=== PATIENT | male | born 1955 | race Caucasian/White ===

== ENCOUNTER 2018-06-13 13:44 | Inpatient (IN) | payer BC ==
[2018-06-13 15:12] LABS: #Eosinphils 0.1 thou/uL (0.0-0.7); #Lymphocytes 0.4 thou/uL (1.20-3.40); #Monocytes 0.7 thou/uL (0.11-0.59); #Neutrophils 3.4 thou/uL (1.40-6.50); %Basophils 0.3 % (0.0-1.0); %Eosinophils 2.9 % (0.0-10.0); %Lymphocytes 9.3 % (21.0-51.0); %Monocytes 14.6 % (0.0-10.0); Hemoglobin 11.7 g/dL (14.0-18.0); Mean Corpuscular HGB CONC 32.9 g/dL (32.0-36.0); Mean Corpuscular Hemoglobin 30.1 pg (27.0-31.0); Mean Corpuscular Volume 91.5 fL (78.0-98.0); Mean Platelet Volume 6.1 fL (7.4-10.4); Platelet Count 253 thou/uL (130-400); RBC Distribution Width 12.1 % (11.5-14.5); Red Blood Cell (RBC) Count 3.88 mill/uL (4.70-6.10); White Blood Cell (WBC) Count 4.6 thou/uL (4.8-10.8)
[2018-06-13 15:29] LABS: ALT (SGPT) 54 U/L (8-55); AST (SGOT) 57 U/L (5-34); Albumin 3.1 g/dL (3.4-4.8); Alkaline Phosphatase 213 U/L (40-150); Anion Gap 11 mmol/L (10-20); BUN (Urea Nitrogen) 37 mg/dL (8.4-25.7); Bilirubin, Total 0.7 mg/dL (0.2-1.2); Calc. Creatinine Clearance 0 mL/min (70-130); Calcium 9.1 mg/dL (7.8-10.44); Carbon Dioxide 27 mmol/L (23-31); Chloride 91 mmol/L (98-107); Estimated GFR-MDRD 34; Globulin 2.9 g/dL (2.4-3.5); Glucose 181 mg/dL (80-115); Potassium 4.6 mmol/L (3.5-5.1); Sodium 124 mmol/L (136-145)
[2018-06-13 16:34] VITALS: BMI 45.9
[2018-06-13] MEDS ORDERED: Dextrose 5% in Water 1,000 ML IV PRN (16:55)
[2018-06-13] MEDS ORDERED: Ondansetron HCl/PF 4 MG/2 ML Vial IVP PRN (16:55)
[2018-06-13] MEDS ORDERED: Ondansetron ODT 4 MG TAB PO PRN (16:55)
[2018-06-13] MEDS ORDERED: Dextrose 50% Abboject 50 ML SYRINGE SLOW IVP PRN (16:55)
[2018-06-13] MEDS ORDERED: Acetaminophen 325 MG TAB PO PRN (16:55)
[2018-06-13] MEDS ORDERED: HumaLOG 300 UNITS/3 ML VIAL SC PRN ×2 (16:55)
[2018-06-13] MEDS ORDERED: hydrALAZINE 20 MG/ML VIAL SLOW IVP PRN (16:55)
[2018-06-13] MEDS: Sodium Chloride 0.9% 1,000 ML IV SCH (17:53)
--- NOTE | 2018-06-13 18:25 | NM ---
NUCLEAR MEDICINE VENTILATION PERFUSION SCAN: (V/Q SCAN) 06/13/18 at 5:12 p.m. HISTORY: 62-year-old male with dyspnea, cough, and elevated D-dimer. TECHNIQUE: Xenon-133 gas dose: 6.6 millicuries [id number] dose: 6.4 millicuries The patient inhaled Xenon-133 gas, and dynamic ventilation scintigraphy was performed. [id number] was injected IV, and multiple perfusion scintigraphic views were obtained. FINDINGS: There is a right lower lobe moderate sized perfusion defect, without a corresponding matching defect on the ventilation study in that area. This single moderate sized mismatch constitutes an intermediat e probability for pulmonary thromboembolism. There is no corresponding opacification of the right bas e seen on the current frontal chest radiograph, but a lateral view is not available. Instead, there i s opacification of the left lower lobe on the chest radiograph, consistent with pneumonia there. IMPRESSION: Intermediate probability for pulmonary thromboembolism. KAREN Simms POS: ANNITA
[2018-06-13 18:37] LABS: Osmolality, Urine 261 mOsm/kg (300-900); Sodium, Urine 34 mmol/L (Not Available)
--- NOTE | 2018-06-13 19:45 | HP ---
PRIMARY CARE PHYSICIAN: Dr. Martinez. CHIEF COMPLAINT: Shortness of breath and cough. HISTORY OF PRESENT ILLNESS: Mr. Chacon is a pleasant 62-year-old gentleman who has a history of hyp ertension, diabetes mellitus and chronic kidney disease stage 3. He was in his usual state of health until approximately a week to 10 days ago. He began having flu-like symptoms with fever and chills as well as cough and trouble sleeping. He also was having some sinus pressure. He went to his [facility] care provider and saw the nurse practitioner there and she prescribed Omnicef twice a day. He too k the antibiotics, but still did not see any improvement. He was still having a high fever as well a s a cough and he came back to the primary care. At this time, he saw Dr. Martinez. He prescribed L evaquin and gave him a shot of Rocephin. This was on Sunday, he was still feeling a little bit weak , but then started to seem like he was improving, he was still having a significant cough, so his wif e gave him some Tussionex and then she says she also gave him some Benadryl. She was checking his pu lse oximetry and noticed that his oxygen levels were in the mid 80s. This got her concerned. She wa ited a little bit thinking it might be the medication effects, but it persisted in the mid 80s and fo r this reason, she called her primary care physician. He said, well if it is not getting better to g o to the ER. She came to the ER in [place] and they evaluated the patient. X-ray was done which d emonstrated a left lower lobe pneumonia. He also had an elevated D-dimer and for this reason, he was being transferred to our facility to make sure he did not have a superimposed pulmonary embolism. O ther than feeling weak and poor appetite and extremely short of breath, primarily on exertion which i s minimal movement, the other review of systems is negative. REVIEW OF SYSTEMS: All systems are reviewed and negative except for that mentioned in the history of present illness. PAST MEDICAL HISTORY: Significant for hypertension, diabetes mellitus type 2, and chronic kidney dis ease stage 3. PAST SURGICAL HISTORY: She has had back surgery. ALLERGIES: AUGMENTIN which causes severe diarrhea. SOCIAL HISTORY: He is , has two children. He is a F[employer]. Nonsmoker and he occasionally drinks. FAMILY HISTORY: No history of any inheritable diseases. MEDICATIONS: Include albuterol, alprazolam, aspirin 81 mg daily, carvedilol 3.125 mg twice a day, ci talopram 10 mg daily, glimepiride 4 mg twice a day, hydrochlorothiazide, Levaquin, metformin 1000 mg twice daily, Actos 45 mg daily, simvastatin 40 mg daily, and fish oil. PHYSICAL EXAMINATION: GENERAL: He is alert and oriented. He appears to be in no acute distress. He is well-developed but morbidly obese gentleman. VITAL SIGNS: Blood pressure was 149/63, heart rate 61, respiratory rate of 18, temperature is 98.7. HEENT: His pupils are equal, round, and reactive. Extraocular muscles are intact. Sclerae are anic teric. Throat: There is no erythema, no exudates. He has got poor dentition. NECK: There is no jugular venous distention, no bruits. LUNGS: He has got rales through much of the left lobe and lung field. There was no wheezing, no rho nchi. He had some decreased breath sounds at the left base. CARDIOVASCULAR: He has a normal S1 and S2. There was no S3 or S4. No murmurs, clicks or rubs. ABDOMEN: Obese, it is soft, it is nontender, nondistended. Positive for bowel sounds. There is no rebound, no guarding and no organomegaly. EXTREMITIES: There is no calf tenderness or redness, no warmth, no joint effusions. NEUROLOGIC: His muscle strength is 5/5 in both his upper and lower extremities. Cranial nerves II-X II are intact. EXTREMITIES: He has got palpable dorsalis pedis pulses bilaterally and no rashes or skin lesions. IMAGING DATA: On his chest x-ray by my reading, his heart size was borderline cardiomegaly and he sargent d some fairly dense infiltrate in the left base. It was obscuring the diaphragm. Therefore, it is p ossible pleural effusion and this is by my reading. LABORATORY DATA: White blood cell count 4.6, hemoglobin 11.7, hematocrit is 35.5, platelet count is 253. Sodium is 124, potassium 4.6, chloride is 27, BUN of 37, creatinine 2.02, CO2 is 27. He had a D-dimer which was 4.86. ASSESSMENT AND PLAN: This is a pleasant 62-year-old gentleman who presents to the emergency room wit h dyspnea on exertion, hypoxemia and findings consistent with pneumonia. He also has a D-dimer which is elevated, but I suspect this could be elevation due to acute illness and not necessarily a pulmon michelet embolism. Therefore, for plan are; 1. Acute respiratory failure with hypoxemia, likely due to pneumonia. We will continue Levaquin as he seemed to have some improvement initially with the Levaquin. We will likely give one dose of IV s teroid and nebulizer treatments as needed, supplemental oxygen, and blood and sputum cultures if they have not been done in the ER. 2. Pneumonia as above. 3. Elevated D-dimer. A V/Q scan has been ordered given the elevated creatinine. I suspect with a l arge infiltrate there could be some perfusion mismatch and therefore we will get bilateral lower extr emity Dopplers to screen printing machine operator helper in interpreting the test or the interpreting for pulmonary embolism. 4. Hyponatremia. I suspect this is due to volume depletion, possibly in combination with infection. We will start him on a cautious IV hydration with normal saline and we will also check urine and se rum osmolalities to screen printing machine operator helper in the evaluation. 5. Mild acute renal failure. Again, I suspect this is volume depletion and we will hydrate. 6. Diabetes mellitus. We will continue his usual medications. We will hold off on the metformin gi rene his elevated GFR. Continue the glimepiride and place him on a sliding scale insulin. 7. Hypertension. We will continue carvedilol. We will hold off on the hydrochlorothiazide and plac e him on p.r.n. medications as needed. 8. We will place him on deep venous thrombosis prophylaxis.
[2018-06-13] MEDS: Docusate 100 MG CAP PO SCH (20:16)
[2018-06-13] MEDS: Heparin 5,000 UNITS/ML VIAL SC SCH (20:18)
--- NOTE | 2018-06-14 | ULT ---
ULTRASOUND WITH DOPPLER DUPLEX VENOUS LOWER EXTREMITIES BILATERAL: 06/13/18 at 10:38 p.m. HISTORY: 62-year-old male with elevated D-dimer and pulmonary embolism. TECHNIQUE: Color flow Doppler, spectral waveform analysis of pulsed Doppler, and ortiz-scale imaging with cristofer saima and augmentation, were used to evaluate the bilateral common femoral, femoral, popliteal, photo stylist ior tibial, and superficial femoral, veins; and the proximal portions of the profunda femoral and gre ater saphenous, veins. FINDINGS: There is normal compressibility, demonstration of blood flow by color Doppler and pulsed Doppler, and response to augmentation, in all interrogated veins. IMPRESSION: Negative. No deep vein thrombosis in the bilateral lower extremities. jose de jesus[] POS: ANNITA
[2018-06-14 05:02] LABS: Anion Gap 14 mmol/L (10-20); BUN (Urea Nitrogen) 35 mg/dL (8.4-25.7); Calc. Creatinine Clearance 90 mL/min (70-130); Calcium 8.8 mg/dL (7.8-10.44); Carbon Dioxide 26 mmol/L (23-31); Chloride 93 mmol/L (98-107); Estimated GFR-MDRD 40; Glucose 185 mg/dL (80-115); Potassium 4.8 mmol/L (3.5-5.1); Sodium 128 mmol/L (136-145)
[2018-06-14 05:41] LABS: Band 11 % (5-11); Eosinophils 4 % (0-10); Hemoglobin 11.1 g/dL (14.0-18.0); Lymphocytes 10 % (21-51); MDiff Complete? YES; Mean Corpuscular HGB CONC 32.9 g/dL (32.0-36.0); Mean Corpuscular Hemoglobin 30.2 pg (27.0-31.0); Mean Corpuscular Volume 91.7 fL (78.0-98.0); Mean Platelet Volume 6.1 fL (7.4-10.4); Metamyelocyte 3 % (0-0); Monocytes 12 % (0-10); Myelocyte 3 % (0-0); Neutrophil 55 % (42-75); Platelet Count 244 thou/uL (130-400); RBC Distribution Width 12.2 % (11.5-14.5); Reactive Lymphocytes 2 % (0-10); Red Blood Cell (RBC) Count 3.69 mill/uL (4.70-6.10); White Blood Cell (WBC) Count 5.1 thou/uL (4.8-10.8)
[2018-06-14] MEDS ORDERED: ALPRAZolam 1 MG TAB PO PRN (08:51)
--- NOTE | 2018-06-14 08:55 | PDOC.PN ---
- Subjective Encounter Start Date: 06/14/18 Encounter Start Time: 08:53 Mr. Chacon was seen today in follow-up of acute respiratory failure due to pneumonia. He is feeling better. He is less short of breath. - Objective Resuscitation Status: Resuscitation Status FULL:Full Resuscitation MAR Reviewed: Yes Vital Signs & Weight: Vital Signs (12 hours) Temp Pulse Resp BP Pulse Ox 06/14/18 07:31 97.6 F 64 18 125/79 97 06/14/18 04:55 98.2 F 65 18 147/72 H 98 06/14/18 00:00 98.2 F 62 18 133/55 L 95 Weight Weight 320 lb Result Diagrams: 06/14/18 03:41 06/14/18 03:41 Additional Labs: Accuchecks 06/14/18 06/13/18 04:49 20:43 POC Glucose 192 H 200 H Phys Exam - Physical Examination HEENT: PERRLA Respiratory: no wheezing, no rhonchi, clear to auscultation bilateral + rales at the left base, better air movement Cardiovascular: RRR, no significant murmur, no rub Gastrointestinal: soft, non-tender, no distention, positive bowel sounds Musculoskeletal: no edema Dx/Plan (1) Acute respiratory failure with hypoxemia Code(s): J96.01 - ACUTE RESPIRATORY FAILURE WITH HYPOXIA Status: Acute (2) Community acquired pneumonia Code(s): J18.9 - PNEUMONIA, UNSPECIFIED ORGANISM Status: Acute (3) Hyponatremia Code(s): E87.1 - HYPO-OSMOLALITY AND HYPONATREMIA Status: Acute (4) Diabetes mellitus type 2 in obese Code(s): E11.69 - TYPE 2 DIABETES MELLITUS WITH OTHER SPECIFIED COMPLICATION; E66.9 - OBESITY, UNSPECIFIED Status: Chronic (5) Hypertension Code(s): I10 - ESSENTIAL (PRIMARY) HYPERTENSION Status: Chronic (6) Acute kidney injury superimposed on chronic kidney disease Code(s): N17.9 - ACUTE KIDNEY FAILURE, UNSPECIFIED; N18.9 - CHRONIC KIDNEY DISEASE, UNSPECIFIED Status: Acute (7) Chronic kidney disease, stage 3 Code(s): N18.3 - CHRONIC KIDNEY DISEASE, STAGE 3 (MODERATE) Status: Chronic - Plan * Pneumonia- improved clinically- will continue Levaquin add incentive spirometry * Acute on chronic kidney disease- improved with hydration * Hyponatremia- also improved- most likely from volume depletion * DM- stable- re-start his home medications * HTN- stable re-start home medications- but will hold HCTZ
[2018-06-14] MEDS ORDERED: Escitalopram Oxalate 10 mg Tablet PO SCH ×2 (09:00→21:00)
[2018-06-14] MEDS: Heparin 5,000 UNITS/ML VIAL SC SCH ×3 (09:20→21:01)
[2018-06-14] MEDS: Pioglitazone HCl 45 MG TAB PO SCH ×3 (09:21→20:59)
[2018-06-14] MEDS: Aspirin 81 mg Enteric Coated Tablet PO SCH (09:22)
[2018-06-14] MEDS: Fish Oil 1,000 MG CAP PO SCH (09:23)
[2018-06-14] MEDS: metFORMIN 500 MG TAB PO SCH ×2 (09:23→20:58)
[2018-06-14] MEDS: Carvedilol 3.125 MG TAB PO SCH ×2 (09:23→21:00)
[2018-06-14] MEDS: hydrALAZINE 10 MG TAB PO SCH ×3 (09:23→21:00)
[2018-06-14] MEDS: Multivit, Therapeutic 1 TAB PO SCH (09:24)
[2018-06-14] MEDS: Docusate 100 MG CAP PO SCH ×2 (09:27→21:01)
[2018-06-14] MEDS: Glimepiride 4 MG TAB PO SCH ×2 (09:35→20:58)
[2018-06-14] MEDS: Sodium Chloride 0.9% 1,000 ML IV SCH (09:36)
[2018-06-14] MEDS ORDERED: Atorvastatin Calcium 20 MG TAB PO SCH (21:00)
[2018-06-15] MEDS ORDERED: metFORMIN 500 MG TAB PO SCH (08:00)
[2018-06-15] MEDS ORDERED: Glimepiride 4 MG TAB PO SCH (08:00)
[2018-06-15] MEDS: hydrALAZINE 10 MG TAB PO SCH (08:03)
[2018-06-15] MEDS: Pioglitazone HCl 45 MG TAB PO SCH (08:04)
[2018-06-15] MEDS: Heparin 5,000 UNITS/ML VIAL SC SCH (08:04)
[2018-06-15] MEDS: Fish Oil 1,000 MG CAP PO SCH (08:04)
[2018-06-15] MEDS: Aspirin 81 mg Enteric Coated Tablet PO SCH (08:04)
[2018-06-15] MEDS: Multivit, Therapeutic 1 TAB PO SCH (08:05)
[2018-06-15] MEDS: Carvedilol 3.125 MG TAB PO SCH (08:05)
[2018-06-15] MEDS: Docusate 100 MG CAP PO SCH (08:05)
[2018-06-15 08:27] VITALS: BP 147/77; TEMP 97.6
[2018-06-15 09:14] LABS: Anion Gap 9 mmol/L (10-20); BUN (Urea Nitrogen) 29 mg/dL (8.4-25.7); Calc. Creatinine Clearance 100 mL/min (70-130); Calcium 9.3 mg/dL (7.8-10.44); Carbon Dioxide 33 mmol/L (23-31); Chloride 93 mmol/L (98-107); Estimated GFR-MDRD 45; Glucose 225 mg/dL (80-115); Potassium 5.1 mmol/L (3.5-5.1); Sodium 130 mmol/L (136-145)
--- NOTE | 2018-06-15 11:34 | PDOC.PN ---
- Subjective Encounter Start Date: 06/15/18 Encounter Start Time: 11:32 Mr. Chacon was seen today in follow-up of community acquired pneumonia. He says he is feeling better. He has less cough, and is less short of breath. - Objective Resuscitation Status: Resuscitation Status FULL:Full Resuscitation MAR Reviewed: Yes Vital Signs & Weight: Vital Signs (12 hours) Temp Pulse Resp BP BP Pulse Ox 06/15/18 08:03 66 145/74 H 06/15/18 08:00 97.6 F 68 18 147/77 H 94 L Weight Weight 320 lb I&O: 06/14/18 06/15/18 06/16/18 06:59 06:59 06:59 Intake Total 2004 360 Output Total 650 Balance 1355 360 Result Diagrams: 06/14/18 03:41 06/15/18 08:44 Additional Labs: Accuchecks 06/15/18 06/15/18 06/14/18 04:43 03:28 20:06 POC Glucose 167 H 176 H 156 H 06/14/18 06/14/18 16:04 11:51 POC Glucose 157 H 219 H Phys Exam - Physical Examination HEENT: PERRLA Respiratory: no wheezing + rales in the left base, much improved, and more air movement at the base Cardiovascular: RRR, no significant murmur, no rub Gastrointestinal: soft, non-tender, no distention, positive bowel sounds Musculoskeletal: edema present trace pedal edema Dx/Plan (1) Acute respiratory failure with hypoxemia Code(s): J96.01 - ACUTE RESPIRATORY FAILURE WITH HYPOXIA Status: Acute (2) Community acquired pneumonia Code(s): J18.9 - PNEUMONIA, UNSPECIFIED ORGANISM Status: Acute (3) Hyponatremia Code(s): E87.1 - HYPO-OSMOLALITY AND HYPONATREMIA Status: Acute (4) Diabetes mellitus type 2 in obese Code(s): E11.69 - TYPE 2 DIABETES MELLITUS WITH OTHER SPECIFIED COMPLICATION; E66.9 - OBESITY, UNSPECIFIED Status: Chronic (5) Hypertension Code(s): I10 - ESSENTIAL (PRIMARY) HYPERTENSION Status: Chronic (6) Acute kidney injury superimposed on chronic kidney disease Code(s): N17.9 - ACUTE KIDNEY FAILURE, UNSPECIFIED; N18.9 - CHRONIC KIDNEY DISEASE, UNSPECIFIED Status: Acute (7) Chronic kidney disease, stage 3 Code(s): N18.3 - CHRONIC KIDNEY DISEASE, STAGE 3 (MODERATE) Status: Chronic - Plan * Acute respiratory failure- much improved * Pneumonia- clinically improved- he is no longer requiring suppemental oxygen * Acute Kidney injury- improved with hydration * DM- blood glucose is stable. * Hyponatremia- improved with hydration-can re-start HCTZ once eating has improved * Possible home soon
--- NOTE | 2018-06-15 13:46 | DIS ---
DATE OF ADMISSION: 06/13/2018 DATE OF DISCHARGE: 06/15/2018 PRIMARY CARE PHYSICIAN: Juan Martinez D.O. DISCHARGE DISPOSITION: Home. PRIMARY DISCHARGE DIAGNOSES: 1. Community-acquired pneumonia. 2. Acute respiratory failure with hypoxemia secondary to #1. 3. Hyponatremia. 4. Acute kidney injury, resolved. 5. Diabetes mellitus, type 2. DISCHARGE MEDICATIONS: Include he is to continue Levaquin 500 mg daily, which he says he believes he has 6 more tablets left, simvastatin 40 mg at bedtime, Actos 45 mg daily, omega 3 fish oil 1 capsule daily, multivitamin once a day, metformin 1000 mg twice daily, hydrochlorothiazide 12.5 mg, this is to restart on Sunday, hydralazine 10 mg t.i.d., glimepiride 4 mg twice daily, Lexapro 10 mg daily, ca rvedilol 3.125 mg twice a day, aspirin 81 mg daily, alprazolam 1 mg daily. PROCEDURES DONE DURING ADMISSION: The patient had a ventilation perfusion scan which was intermediat e probability for PE. The patient had bilateral lower extremity venous Dopplers, which were negative in both lower extremities. CODE STATUS: FULL CODE. ALLERGIES: No known drug allergies. HOSPITAL COURSE: Mr. Chacon is a pleasant 62-year-old gentleman who was admitted after he failed ou tpatient treatment for pneumonia. The patient was having quite a bit of severe coughing and was also hypoxic. For this reason, he was admitted. He had an elevated D-dimer in the emergency room and th erefore it was recommended to have a ventilation perfusion scan. This was intermediate probability; however, he had bilateral lower extremity venous Dopplers, which were negative. He has an alternate diagnosis which is more probable as causing his shortness of breath and symptoms and he had an infilt rate on chest x-ray. Therefore, the likelihood of pulmonary embolism is low and he has been clinical ly improving with therapy for pneumonia. The hyponatremia was likely due to volume depletion in the face of hydrochlorothiazide use. This improved with hydration. We will continue to hold hydrochloro thiazide until Sunday, at which time this can be cautiously restarted. Metformin was held due to yazan al insufficiency, but this can be reestablished now that his creatinine is down to 1.5. He is to con tinue ambulation at home and follow up with his primary care physician in 1-2 weeks.
[2018-06-16] MEDS ORDERED: Hydrochlorothiazide 25 MG TAB PO SCH (09:00)
== END 2018-06-15 12:53 | disposition home or self-care (01) | DRG 193 ==
LOC: ERS 13:44 → T4-A 16:30
PROVIDERS: ADMIT Internal Medicine; ATTEND Internal Medicine
DX: J18.9 Pneumonia, unspecified organism (principal); J96.01 Acute respiratory failure with hypoxia; Z68.42 Body mass index [BMI] 45.0-49.9, adult; J90 Pleural effusion, not elsewhere classified; E87.1 Hypo-osmolality and hyponatremia; N17.9 Acute kidney failure, unspecified; E66.01 Morbid (severe) obesity due to excess calories; N18.3 Chronic kidney disease, stage 3 (moderate); E11.9 Type 2 diabetes mellitus without complications; E78.5 Hyperlipidemia, unspecified; F17.210 Nicotine dependence, cigarettes, uncomplicated; I12.9 Hypertensive chronic kidney disease with stage 1 through stage 4 chronic kidney disease, or unspecified chronic kidney disease; Z88.0 Allergy status to penicillin; Z79.899 Other long term (current) drug therapy; Z79.82 Long term (current) use of aspirin; Z79.2 Long term (current) use of antibiotics; Z79.84 Long term (current) use of oral hypoglycemic drugs
CPT/HCPCS: 36415; 36416; 78582; 80048; 83605; 83930; 83935; 84300; 85025; 87040; 93970; 99285; A9540; A9558; J1644; J1956; J2920

== ENCOUNTER 2018-09-30 06:58 | Outpatient (CLI) | payer BC ==
[2018-09-30 12:21] LABS: #Eosinphils 0.1 thou/uL (0.0-0.7); #Lymphocytes 1.2 thou/uL (1.20-3.40); #Monocytes 0.7 thou/uL (0.11-0.59); #Neutrophils 3.9 thou/uL (1.40-6.50); %Basophils 0.7 % (0.0-1.0); %Eosinophils 1.9 % (0.0-10.0); %Lymphocytes 19.6 % (21.0-51.0); %Neutrophils 66.9 % (42.0-75.0); Hemoglobin 13.4 g/dL (14.0-18.0); Mean Corpuscular HGB CONC 32.9 g/dL (32.0-36.0); Mean Corpuscular Hemoglobin 29.7 pg (27.0-31.0); Mean Corpuscular Volume 90.5 fL (78.0-98.0); Mean Platelet Volume 7.6 fL (7.4-10.4); Platelet Count 209 thou/uL (130-400); RBC Distribution Width 12.1 % (11.5-14.5); Red Blood Cell (RBC) Count 4.52 mill/uL (4.70-6.10); White Blood Cell (WBC) Count 5.9 thou/uL (4.8-10.8)
[2018-09-30 12:26] LABS: INR-International Normal Ratio 1.1; PTT 37.3 SEC (22.9-36.1); Prothrombin Time 14.6 SEC (12.0-14.7)
[2018-09-30 13:01] LABS: ALT (SGPT) 16 U/L (8-55); AST (SGOT) 16 U/L (5-34); Albumin 3.9 g/dL (3.4-4.8); Alkaline Phosphatase 62 U/L (40-150); Anion Gap 13 mmol/L (10-20); BUN (Urea Nitrogen) 34 mg/dL (8.4-25.7); Bilirubin, Total 0.6 mg/dL (0.2-1.2); Calc. Creatinine Clearance 0 mL/min (70-130); Carbon Dioxide 24 mmol/L (23-31); Chloride 104 mmol/L (98-107); Estimated GFR-MDRD 48; Globulin 2.8 g/dL (2.4-3.5); Glucose 163 mg/dL (80-115); Potassium 4.9 mmol/L (3.5-5.1); Protein, Total 6.7 g/dL (5.8-8.1); Sodium 136 mmol/L (136-145)
== END 2018-09-30 06:59 | disposition home or self-care (01) ==
LOC: LABBT 06:58
PROVIDERS: ATTEND Internal Medicine Cardiovascular Disease
DX: Z01.812 Encounter for preprocedural laboratory examination (principal); R94.39 Abnormal result of other cardiovascular function study
CPT/HCPCS: 80053; 85025; 85610; 85730

== ENCOUNTER 2018-10-04 06:58 | Day surgery (SDC) | payer BC ==
[2018-09-30 11:19] VITALS: BMI 44.4
[2018-10-04] MEDS ORDERED: Nitroglycerin 100MG/250ML BOT 250 ML ONE (08:07)
[2018-10-04] MEDS ORDERED: Heparin 10,000 UNITS/1 ML VIAL ONE (08:07)
[2018-10-04] MEDS ORDERED: Verapamil 5 MG/2 ML VIAL ONE (08:31)
[2018-10-04] MEDS ORDERED: Midazolam HCl 2 mg/2 ml Vial ONE (09:05)
[2018-10-04] MEDS ORDERED: Fentanyl 100 MCG/2 ML VIAL ONE (09:06)
[2018-10-04] MEDS ORDERED: Iopamidol 370 76% 100 ML VIAL ONE (09:29)
== END 2018-10-04 12:03 | disposition home or self-care (01) ==
LOC: CCL 06:58
PROVIDERS: ATTEND Internal Medicine Cardiovascular Disease
PROC: 4A023N7 Measurement of Cardiac Sampling and Pressure, Left Heart, Percutaneous Approach (ICD-10-PCS; principal; 2018-10-04)
PROC: B2111ZZ Fluoroscopy of Multiple Coronary Arteries using Low Osmolar Contrast (ICD-10-PCS; principal; 2018-10-04)
DX: I25.10 Atherosclerotic heart disease of native coronary artery without angina pectoris (principal); E78.00 Pure hypercholesterolemia, unspecified; E78.5 Hyperlipidemia, unspecified; I12.9 Hypertensive chronic kidney disease with stage 1 through stage 4 chronic kidney disease, or unspecified chronic kidney disease; E11.22 Type 2 diabetes mellitus with diabetic chronic kidney disease; N18.3 Chronic kidney disease, stage 3 (moderate); I48.0 Paroxysmal atrial fibrillation; F17.200 Nicotine dependence, unspecified, uncomplicated; Z79.01 Long term (current) use of anticoagulants; Z79.84 Long term (current) use of oral hypoglycemic drugs; Z79.899 Other long term (current) drug therapy; Z88.8 Allergy status to other drugs, medicaments and biological substances
CPT/HCPCS: 93458; 99152; C1769; J1644; J2250; J3010

== ENCOUNTER 2021-05-06 13:03 | Outpatient (CLI) | payer MEDICARE ==
[2021-05-07 13:56] LABS: SARS-CoV-2 PCR by NAA Not Detected (NotDetected)
== END 2021-05-06 13:04 | disposition home or self-care (01) ==
LOC: LABBT 13:03
PROVIDERS: ATTEND Neurological Surgery
DX: Z01.812 Encounter for preprocedural laboratory examination (principal); G56.02 Carpal tunnel syndrome, left upper limb; Z20.822 Contact with and (suspected) exposure to COVID-19
CPT/HCPCS: U0003; U0005

== ENCOUNTER 2021-07-08 13:19 | Outpatient (CLI) | payer MEDICARE ==
[2021-07-08 21:15] LABS: SARS-CoV-2 PCR by NAA Not Detected (NotDetected)
== END 2021-07-08 13:20 | disposition home or self-care (01) ==
LOC: LABBT 13:19
PROVIDERS: ATTEND Neurological Surgery
DX: Z01.812 Encounter for preprocedural laboratory examination (principal); G56.02 Carpal tunnel syndrome, left upper limb; Z20.822 Contact with and (suspected) exposure to COVID-19
CPT/HCPCS: U0003; U0005

== ENCOUNTER 2021-07-13 05:33 | Day surgery (SDC) | payer MEDICARE ==
[2021-07-11 13:06] VITALS: BMI 44.4
[2021-07-13] MEDS ORDERED: ceFAZolin 2 GM/DEX 5% 100 ML BAG ONE (06:21)
[2021-07-13] MEDS ORDERED: Lidocaine 1% w/Epinephrine 1:100K 20 ML VIAL ONE (06:22)
[2021-07-13] MEDS ORDERED: Fentanyl 100 MCG/2 ML VIAL ONE (06:40)
[2021-07-13] MEDS ORDERED: Midazolam HCl 2 mg/2 ml Vial ONE (06:49)
[2021-07-13] MEDS ORDERED: Dexamethasone 20 MG/5 ML VIAL ONE (07:03)
[2021-07-13] MEDS ORDERED: Ondansetron PF 4 MG/2 ML Vial ONE (07:03)
[2021-07-13] MEDS ORDERED: Lidocaine 1% PF 5 ML VIAL ONE (07:03)
[2021-07-13] MEDS ORDERED: PROPOFOL 200 MG/20 ML VIAL ONE (07:03)
== END 2021-07-13 09:05 | disposition home or self-care (01) ==
LOC: SDC 05:33
PROVIDERS: ATTEND Neurological Surgery
PROC: 01N50ZZ Release Median Nerve, Open Approach (ICD-10-PCS; principal; 2021-07-13)
DX: G56.02 Carpal tunnel syndrome, left upper limb (principal); E78.5 Hyperlipidemia, unspecified; E11.9 Type 2 diabetes mellitus without complications; I10 Essential (primary) hypertension; Z79.01 Long term (current) use of anticoagulants; Z79.2 Long term (current) use of antibiotics; Z79.84 Long term (current) use of oral hypoglycemic drugs; Z79.899 Other long term (current) drug therapy; Z98.1 Arthrodesis status
CPT/HCPCS: J1100; J2250; J2405; J2704; J3010

== ENCOUNTER 2021-12-23 09:21 | Outpatient (CLI) | payer MEDICARE ==
[2021-12-23 10:39] LABS: #Basophils 0.1 10x3/uL (0.0-0.2); #Eosinphils 0.1 10x3/uL (0.0-0.5); #Monocytes 0.8 10x3/uL (0.0-1.1); #Neutrophils 5.5 10x3/uL (1.5-8.4); %Basophils 0.8 % (0.0-2.0); %Eosinophils 1.5 % (0.0-6.0); %Lymphocytes 16.6 % (18.0-47.0); %Monocytes 10.1 % (0.0-10.0); %Neutrophils 70.6 % (40.0-75.0); Hemoglobin 15.3 g/dL (13.5-17.5); Mean Corpuscular HGB CONC 33.6 g/dL (32.0-36.0); Mean Corpuscular Hemoglobin 30.1 pg (27.0-33.0); Mean Corpuscular Volume 89.6 fl (81.2-95.1); Mean Platelet Volume 9.6 fl (7.4-10.4); Platelet Count 266 10x3/uL (150-450); RBC Distribution Width 13.1 % (11.5-14.5); Red Blood Cell (RBC) Count 5.09 10x6/uL (4.32-5.72); White Blood Cell (WBC) Count 7.8 10x3/uL (3.5-10.5)
[2021-12-23 21:02] LABS: SARS-CoV-2 PCR by NAA Not Detected (NotDetected)
== END 2021-12-23 09:22 | disposition home or self-care (01) ==
LOC: LABBT 09:21
PROVIDERS: ATTEND Orthopaedic Surgery Hand Surgery
DX: Z01.818 Encounter for other preprocedural examination (principal); G56.02 Carpal tunnel syndrome, left upper limb; Z20.822 Contact with and (suspected) exposure to COVID-19
CPT/HCPCS: 85025; 93005; U0003; U0005; 93010

== ENCOUNTER 2023-07-31 13:10 | Outpatient (CLI) | payer MEDICARE | END 2023-07-31 13:11 | disposition home or self-care (01) | LOC: BICMRI 13:10 | PROVIDERS: ATTEND Orthopaedic Surgery Hand Surgery | DX: M65.9 Synovitis and tenosynovitis, unspecified (principal); M25.849 Other specified joint disorders, unspecified hand ==

== ENCOUNTER 2023-11-05 09:29 | Outpatient (CLI) | payer MEDICARE | END 2023-11-05 09:30 | disposition home or self-care (01) | LOC: BICMRI 09:29 | PROVIDERS: ATTEND Orthopaedic Surgery Hand Surgery | DX: G56.02 Carpal tunnel syndrome, left upper limb (principal); M65.9 Synovitis and tenosynovitis, unspecified; R60.0 Localized edema; S63.8X2A Sprain of other part of left wrist and hand, initial encounter; Z98.890 Other specified postprocedural states ==